=== PATIENT | male | born 1975 | race Caucasian/White ===

== ENCOUNTER 2016-11-13 19:14 | Emergency (ER) | payer OTHER ==
[~2016-11-13] VITALS: Ht 185.4 cm; Wt 87.0 kg
[~2016-11-13 19:14] MED LIST: HYDR-762 PO
[2016-11-13 19:19] VITALS: Ht 185.4 cm; Wt 87.0 kg
[2016-11-13] MEDS ORDERED: ACET1TAB40 PO (20:18)
--- NOTE | 2016-11-13 20:21 | ERD ---
ER Documentation Chief Complaint Date/Time DATE: 11/13/16 TIME: 20:19 Chief Complaint GOT FOOD STUCK IN THROAT AND SHOVED A SPOON DOWN HIS THROAT. NOW SOB HPI This 41-year-old male was eating at home alone today and choking on a piece of meat from [place] food. He tried a self Heimlich to no avail. He stuck a spoon down his throat was able to retrieve a piece of meat. He has a slight amount of blood. He is no longer choking or having difficulty breathing and is able to tolerate p.o.'s. He feels a sensation of a residual foreign body in the believes there is residual food stuck in his throat. Describes as being an anterior cricoid cartilage area. Feels like it moves with swallowing. He is no longer spitting up any blood. ROS All systems reviewed and are negative except as per history of present illness. Medications Home Meds Active Scripts Acetaminophen with Codeine (Acetaminophen-Cod #3 Tablet) 1 Each Tablet, 1 TAB PO Q6H Y for PAIN, #7 TAB Prov:CLAYTON MARRUFO MD 11/13/16 Hydrocodone Bit-Acetaminophen* (Cascade*) 10-325 Mg Tablet, 1 TAB PO Q6 Y for PAIN , #30 TAB Prov:ANGELA REED NP 04/28/15 Hydrocodone Bit-Acetaminophen* (Cascade*) 10-325 Mg Tablet, 1 TAB PO Q6 Y for PAIN , #20 TAB Prov:SHANTI BENJAMIN 04/20/15 Allergies Allergies: Coded Allergies: No Known Allergy (Unverified , 04/28/15) PMhx/Soc Medical and Surgical Hx: pt denies Medical Hx, pt denies Surgical Hx History of Surgery: No Anesthesia Reaction: No Hx Neurological Disorder: No Hx Respiratory Disorders: No Hx Cardiac Disorders: No Hx Psychiatric Problems: No Hx Miscellaneous Medical Probl: No Hx Alcohol Use: No Hx Substance Use: No Hx Tobacco Use: Yes Smoking Status: Current some day smoker Physical Exam Vitals Vital Signs Date Time Temp Pulse Resp B/P Pulse Ox O2 Delivery O2 Flow Rate FiO2 11/13/16 19:19 97.8 98 24 170/96 100 Physical Exam Const: [] Alert, [id number] per Head: Atraumatic Eyes: Normal Conjunctiva ENT: Normal External Ears, Nose and Mouth. Oropharynx normal and airway patent. Slight tender in the anterior cricoid cartilage area without swelling, induration, crepitus. Neck: Full range of motion..~ No meningismus. Resp: Clear to auscultation bilaterally Cardio: Regular rate and rhythm, no murmurs Abd: Soft, non tender, non distended. Normal bowel sounds Skin: No petechiae or rashes Back: No midline or flank tenderness Ext: No cyanosis, or edema Neur: Awake and alert Psych: Normal Mood and Affect Procedures/MDM CT of the neck was performed the results pending and signed out to a nurse practitioner [place] supervising ER physician.. Signs and symptoms consistent with likely pharyngeal abrasion but further disposition pending CT results and serial exam. Patient has no signs of respiratory distress, active foreign body or obstruction. There is no signs of fever or perforation currently Departure Diagnosis: Primary Impression: Abrasion of pharynx Encounter type: initial encounter Qualified Code: S10.11XA - Abrasion of pharynx, initial encounter Additional Impression: Choking due to food (regurgitated) Encounter type: initial encounter Qualified Code: T17.320A - Choking due to food (regurgitated), initial encounter Condition: Stable Patient Instructions: Choking Spell (Adult), Pharyngeal Abrasion Additional Instructions: No foreign body seen on CT. Suspect pharyngeal abrasion. Recommend clear liquids and soft diet. Recheck for fevers, new or worsening symptoms. CLAYTON MARRUFO MD Nov 13, 2016 20:21
--- NOTE | 2016-11-13 20:45 | RADRPT ---
PROCEDURE: CT scan soft tissue neck without contrast. CLINICAL INDICATION: Pain. Possible foreign body. TECHNIQUE: CT scan of the neck was performed on a multidetector scanner. Contiguous axial images were obtained throughout the neck with coronal and sagittal reformatted images. No intravenous admi nistration was utilized. The exam CTDlvol = 7.7 and DLP = 119 mGy-cm. One of the following 3 dose r eduction techniques were used: Automated exposure control; adjustment of the mA and/or kV according to patient size; or use of iterative reconstruction technique. One of the following 3 dose reduction techniques were used: Automated exposure control; adjustment of the mA and/or kV according to patie nt size; or use of iterative reconstruction technique. COMPARISON: CT maxillofacial bones 04/19/2015 FINDINGS: No radiopaque foreign body is identified. The oropharynx, hypopharynx, larynx, and trachea are unre markable. No airway compromise is seen. The mucosal space of the airway is clear. The tonsillar p illars are normal. The deep spaces of the suprahyoid neck are symmetric and normal. No mass is jessica ntified. The parotid glands, submandibular glands, and thyroid gland are all normal. No definite pathologic adenopathy is detected. Bones are unremarkable. Imaging obtained through the lung apic es revealed no acute abnormality. IMPRESSION: No radiopaque foreign body. RPTAT: HMVK .Kyle Galvez MD, MD Date Time Electronically viewed and signed by .Kyle Galvez MD, MD on 11/13/2016 20:45 .K/
[2016-11-13 20:58] VITALS: BP 138/80; PULSE 81; RESP 16
== END 2016-11-13 21:02 | disposition home or self-care (01) ==
LOC: FTE 19:14
DX: S10.11XA Abrasion of throat, initial encounter (principal); F17.210 Nicotine dependence, cigarettes, uncomplicated; X58.XXXA Exposure to other specified factors, initial encounter; Y92.009 Unspecified place in unspecified non-institutional (private) residence as the place of occurrence of the external cause
CPT/HCPCS: 70490; Z7502